=== PATIENT | female | born 1960 | race African-American/Black ===

== ENCOUNTER 2019-12-04 10:15 | Outpatient (CLI) | payer MEDICARE, MEDICAID, SELFPAY ==
--- NOTE | 2019-12-04 10:59 | ECG_ITS ---
Measurements Intervals [place] Rate: 82 P: 61 DC: 154 QRS: 46 QRSD: 98 T: 47 QT: 374 QTc: 437 Interpretive Statements SINUS RHYTHM BASELINE ARTIFACT- I, II, III, AVR, AVL, AVF NORMAL ECG Electronically Signed On 12-04-2019 11:21:36 CDT by Devin Ernandez D.O.
[2019-12-04 11:50] LABS: Albumin Level 4.4 g/dL (3.5-5.1); Blood Urea Nitrogen 19 mg/dL (7-17); Calcium 9.7 mg/dL (8.4-10.2); Carbon Dioxide 27 mmol/L (22-30); Chloride 102 mmol/L (98-107); Estimated Glomerular Filt Rate > 60; Glucose 90 mg/dL (65-105); Hemoglobin A1C 5.4 % (<5.7); Sodium 136 mmol/L (137-145)
[2019-12-04 11:51] LABS: Urine Cotinine NEGATIVE
[2019-12-04 11:54] LABS: Basophils Percent Auto 0.3 % (0.2-1.2); Eosinophils Absolute Auto 0.5 K/mm3 (0-0.3); Eosinophils Percent Auto 8.9 % (0-4.4); Hematocrit 41.4 % (37.0-47.0); Hemoglobin 13.2 g/dL (12.0-15.0); Immature Granulocyte Absolute 0.01 K/mm3 (0.00-0.031); Immature Granulocyte Percent A 0.2 % (0-0.5); Lymphocytes Absolute Auto 2.48 K/mm3 (0.9-3.2); Lymphocytes Percent Auto 41.1 % (18.3-44.2); Mean Corpuscular HGB Conc 31.9 g/dl (32-36); Mean Corpuscular Hemoglobin 28.4 pg (26-34); Mean Corpuscular Volume 89.2 fl (80-100); Mean Platelet Volume 9.9 fl (7.4-10.4); Monocytes Absolute Auto 0.7 K/mm3 (0.1-0.6); Monocytes Percent Auto 12.1 % (2.6-8.5); Neutrophils Absolute Auto 2.3 K/mm3 (1.3-6.7); Neutrophils Percent Auto 37.4 % (45.5-73.1); Platelet Count Result 243 k/mm3 (150-375); Red Blood Count 4.64 M/mm3 (4.2-5.4); Red Cell Distribution Width 13.1 % (11.5-14.5)
[2019-12-04 11:56] LABS: Partial Thromboplastin Time 28.1 SECONDS (22.3-36.8)
[2019-12-04 11:58] LABS: Add Urine Microscopic? YES; Appearance Urine Cloudy (Clear); Bacteria Urine 1+ /hpf; Bilirubin Urine Negative (Negative); Blood Urine Negative (Negative); Budding Yeast Urine Present /hpf; Color Urine Yellow (Yellow); Glucose Urine UA Negative (Negative); Ketones Urine Negative (Negative); Leukocyte Esterase Ur Negative LEU/UL (Negative); Mucus Urine Heavy /lpf; Nitrate Urine Negative (Negative); Protein Urine Negative (Negative); Specific Grav Ur 1.021 (1.001-1.035); Squamous Epithelial Cell Urine Few /hpf (Few); WBC Urine 0-3 /hpf
== END 2019-12-04 10:16 | disposition home or self-care (01) ==
LOC: ANHSURGERY 10:21
PROVIDERS: PCP Family Medicine; Visit Provider Orthopaedic Surgery
DX: Z01.818 Encounter for other preprocedural examination (principal); M17.10 Unilateral primary osteoarthritis, unspecified knee
CPT/HCPCS: 36415; 80048; 80307; 81001; 82040; 83036; 85025; 85610; 85730; 86850; 86900; 86901; 87081; 93005

== ENCOUNTER 2019-12-09 01:11 | Outpatient (CLI) | payer MEDICARE, MEDICAID, SELFPAY ==
[2019-12-09 16:42] LABS: SARS-CoV-2 RNA PCR Negative
== END 2019-12-09 01:12 | disposition home or self-care (01) ==
LOC: ANHCOVIDDT 01:11
PROVIDERS: PCP Family Medicine; Visit Provider Orthopaedic Surgery
DX: Z20.828 Contact with and (suspected) exposure to other viral communicable diseases (principal); Z01.812 Encounter for preprocedural laboratory examination
CPT/HCPCS: 87635; C9803; U0003

== ENCOUNTER 2019-12-12 01:06 | Day surgery (SDC) | payer MEDICARE, MEDICAID, SELFPAY ==
[2019-12-04 10:45] VITALS: BMI 39.4
[2019-12-04 10:59] VITALS: BP 145/75; PULSE 86; RESP 18; TEMP 36.8; O2SAT 100
[2019-12-12] VITALS (16 sets, daily range): BP systolic 114–153; BP diastolic 68–98; PULSE 72–97; RESP 12–20; TEMP 36.2–36.9; O2SAT 92–98; BMI 44.7
--- NOTE | ~2019-12-12 | XR_ITS ---
EXAMINATION: XR knee RT 2V DATE: 12/12/2019 13:07 INDICATION: Total right knee arthroplasty. Postop. TECHNIQUE: 2 views of right knee were obtained. COMPARISON: Right knee radiographs 08/14/2019 FINDINGS: There is a total right knee arthroplasty in near-anatomic alignment. There are osteophytes of the patella. No fracture. There is gas in the knee joint and soft tissues, consistent with recent surgery. Anterior skin gorge are noted. IMPRESSION: 1. Total right knee arthroplasty in near-anatomic alignment. Reviewed, dictated and finalized at location A.
--- NOTE | 2019-12-12 07:33 | WPDHPUPDATE1 ---
History and Physical Update Update Date/Time: 12/12/19 07:33 History and Physical has been reviewed, including an updated exam of the patient. There are NO changes in the patient's condition. Risks, benefits, and alternatives have been discussed and questions answered. Patient agrees to proceed with procedure.
[2019-12-12] MEDS: LACTATED RINGERS 1,000 ML 30 ML IV CONT ×2 (09:40→12:53)
--- NOTE | 2019-12-12 10:13 | WPDANESEPPF ---
Anes - Initial Pre Proc Eval Procedure: Operation Date: 12/12/19 11:00 Proposed Procedures p Right Total Knee Arthroplasty - Harvey Kimbrough MD Date/Time: 12/12/19 10:13 Surgeon: Harvey Kimbrough MD Pre Op Diagnosis: DJD & OA Right Knee Patient Data Age: 59 Gender: F Height: 1.7 m Weight: 114 kg Last Vital Signs Temp 36.8 C 12/12/19 10:00 Pulse 87 12/12/19 10:00 Resp 20 12/12/19 10:00 BP 128/68 12/12/19 10:00 Pulse Ox 94 12/12/19 10:00 Allergies Allergy/AdvReac Type Severity Reaction Status Date / Time tramadol Allergy Unknown Hives Verified 12/12/19 09:30 Home Medications Medication Instructions Recorded Confirmed Type famotidine 20 mg tablet 20 mg PO DAILY 08/14/19 12/12/19 History amlodipine 2.5 mg PO DAILY 12/04/19 12/12/19 History diclofenac sodium 75 mg PO PRN PRN 12/04/19 12/12/19 History doxepin 25 mg PO HS 12/04/19 12/12/19 History oxycodone-acetaminophen 10 mg-325 1 tablet PO Q4H PRN 12/04/19 12/12/19 History mg tablet Patient hx anesthesia problems: none Family hx anesthesia problems: none PMFSH Past Medical History Medical History (Updated 12/11/19 @ 09:47 by Avinash Mary DO) Arthritis Chronic back pain GERD (gastroesophageal reflux disease) Hypertension Vision abnormalities Vision loss Weight loss Social History Social History Alcohol intake: current Anes - Eval Final PreProcedure Day of Procedure 12/12/19 10:13 Patient weight: obese Heart: regular rate and rhythm Lungs: clear to auscultation and normal air movement Airway: Mallampati scale class II Neurological: alert and oriented Last oral intake: >/= 8 hours ASA classification: III Emergent: no Anesthetic plan: proceed Anesthesia type and monitoring: general ETT and standard monitoring Informed Consent: The patient's anesthetic plan and its attendant risks and benefits were discussed with the patient/family/POA. Questions were solicited and answers provided to the satisfaction of the patient/family/POA.
--- NOTE | 2019-12-12 10:14 | WPDANESPNB ---
Anes - Peripheral Nerve Block Date/Time: 12/12/19 10:14 I have discussed with the patient/family/POA the placement of a peripheral nerve block for post-operative pain management, including associated risks, benefits, complications, and side effects. Alternative methods of post-operative analgesia were detailed. Questions were solicited and answers provided to the satisfaction of the patient/family/POA. Time-Out: A pre-procedural Time-Out was completed immediately before starting the procedure and confirmed: Patient Identification, Site, Procedure, Patient Position and the Availability of Requisite Equipment. Clinical Indications: Acute post-operative pain management requested by the operative surgeon. Nerve Block Insertion Note Anes-nerve block: femoral right Patient position: supine Skin prep: chlorhexidine Needle: 22 gauge, stimulating, insulated echogenic needle. Needle length: 80 mm Technique: nerve stimulation lost at (mA) (0.3) and ultrasound Injectate: bupivacaine 0.5% with epi 5 mcg/ml (30cc) Observations: tolerated well Complications: none Procedure start time:: 1038 Procedure end time:: 1043
[2019-12-12] MEDS: IBUPROFEN IV 800 MG/200 ML 800 MG/200 ML BAG 400 MG IVPB (10:15)
[2019-12-12] MEDS: ceFAZolin SODIUM 1 GM VIAL IV PUSH (10:45)
[2019-12-12] MEDS: ceFAZolin 2 GM/D5W 50 ML 2 GM/50 ML BAG IVPB ×2 (10:45→18:14)
--- NOTE | 2019-12-12 12:52 | PM.OP ---
Procedure Note - Brief Procedure Note - Brief Date of procedure: 12/12/19 Pre-op diagnosis: DJD & OA Right Knee Post-op diagnosis: same Procedure performed: R TKA Anesthesia: GETA Surgeon: Harvey Kimbrough MD Estimated blood loss (mL): 100 Complications: No immediate complications Condition: stable Disposition: PACU
--- NOTE | 2019-12-12 14:40 | ADMGEN ---
This patient, Mikki Davies, was admitted to Medical Room 253-01. Patient/family oriented to hospital policies and general routines including ID bracelet, bed and alarms, visiting hours, pain management, procedures, bathroom and other care routines, personal items, smoking policy, room service/diet, and visiting hours. Valuables list has been completed. Information on how to activate the Rapid Response Team has been discussed. Patient/Family are encouraged to report perceived risks to care and to ask questions if they do not understand what they are told or what they should do.
[2019-12-12] MEDS: SODIUM CHLORIDE 0.9% IV 1,000 ML 125 ML IV CONT (15:03)
[2019-12-12] MEDS: MORPHINE SULFATE 4 MG/ML INJ IV PUSH ×2 (15:05→18:07)
[2019-12-12] MEDS: CELECOXIB 200 MG CAPSULE PO (16:58)
[2019-12-12] MEDS: DOCUSATE SODIUM 100 MG CAPSULE PO (16:59)
--- NOTE | 2019-12-12 18:11 | OP_ITS ---
DATE OF PROCEDURE: 12/12/2019 PREOPERATIVE DIAGNOSIS: Right knee degenerative joint disease. POSTOPERATIVE DIAGNOSIS: Right knee degenerative joint disease. PROCEDURE: Right total knee arthroplasty. ANESTHESIA: General. COMPLICATIONS: None. INDICATIONS: This is a 59-year-old female with advanced osteoarthritis of the right knee. She was in pain and she was indicated for right total knee arthroplasty. DESCRIPTION OF PROCEDURE: The patient was taken to the operating room in stable condition and placed in supine position. General anesthesia was induced and then the right lower extremity was prepped and draped sterilely from the toes to the thigh. A midline skin incision was made. Medial parapatellar arthrotomy was made. Patella was everted. There was arthrosis in all 3 compartments of the knee joint. Then, IM kendal was placed in the femur and transfemoral cut was made in 5 degrees of valgus removing approximately 9 mm of bone from the distal femur. Next, the femur was sized to 67.5, so a cutting block was placed in 3 degrees of external rotation and in alignment with [place] line. Anterior, posterior, and chamfer cuts were made to the femur. Next, the transtibial cut was made of the tibia removing approximately 10 mm of bone from the high side. The tibial surface was planed with a planer and the 71 tibial trial was placed in line with one-third medial aspect of the tibial tubercle and then a 67.5 femoral trial implant then was seated on to the femur. A #10 CR poly trial was placed. The knee came out to full extension. There was good varus and valgus stability in both flexion and extension. There was good anterior-posterior stability. There was no tilt of the patella with tracking and the knee came out to full extension. The trial instruments then were removed from the knee. Then, the knee was irrigated thoroughly with sterile saline and then a #71 tibial Biomet component was cemented into place and a femoral component measuring 67.[address] as well and a poly trial measuring #10 was also placed. The knee came out to full extension. Once the cement was hardened, excess cement had been removed from the periphery of the implant. The knee was taken through range of motion, found to be very stable. There was good stability also in the anterior-posterior plane and the varus valgus stress. The trial polyethylene was removed and then a #10 CR E-poly from [employer] was tapped into place and secured. The knee came out to full extension. The knee was taken through range of motion and found to be very stable in varus-valgus stress. The patella tracked without any tilt. The tourniquet was deflated. The bleeders were cauterized. The wound was irrigated thoroughly with sterile Betadine and sterile water to half-strength. The arthrotomy then was approximated with #1 Vicryl, subcutaneous tissues with 2-0 Vicryl, and the skin was approximated with gorge. Wound was washed and placed sterile dressing. The patient was extubated. Lyndon I MT: Cem
[2019-12-12] MEDS: RIVAROXABAN 10 MG TABLET PO (20:47)
[2019-12-12] MEDS: DOXEPIN HCL 25 MG CAPSULE PO (20:47)
[2019-12-13 00:07] VITALS: BP 125/60; PULSE 93; RESP 20; TEMP 36.4; O2SAT 94
[2019-12-13] MEDS: MORPHINE SULFATE 4 MG/ML INJ IV PUSH ×3 (01:24→08:56)
[2019-12-13] MEDS: ceFAZolin 2 GM/D5W 50 ML 2 GM/50 ML BAG IVPB ×2 (01:30→09:04)
[2019-12-13 04:07] VITALS: BP 126/71; PULSE 90; RESP 18; TEMP 36.6; O2SAT 96
[2019-12-13 05:40] LABS: Basophils Percent Auto 0.2 % (0.2-1.2); Eosinophils Percent Auto 0.1 % (0-4.4); Hematocrit 34.5 % (37.0-47.0); Hemoglobin 10.9 g/dL (12.0-15.0); Immature Granulocyte Absolute 0.08 K/mm3 (0.00-0.031); Immature Granulocyte Percent A 0.6 % (0-0.5); Lymphocytes Percent Auto 11.5 % (18.3-44.2); Mean Corpuscular HGB Conc 31.6 g/dl (32-36); Mean Corpuscular Hemoglobin 28.8 pg (26-34); Mean Corpuscular Volume 91.3 fl (80-100); Mean Platelet Volume 9.8 fl (7.4-10.4); Monocytes Absolute Auto 1.9 K/mm3 (0.1-0.6); Monocytes Percent Auto 14.2 % (2.6-8.5); Neutrophils Absolute Auto 9.6 K/mm3 (1.3-6.7); Neutrophils Percent Auto 73.4 % (45.5-73.1); Platelet Count Result 232 k/mm3 (150-375); Red Blood Count 3.78 M/mm3 (4.2-5.4); Red Cell Distribution Width 12.8 % (11.5-14.5)
[2019-12-13 05:55] LABS: Blood Urea Nitrogen 14 mg/dL (7-17); Calcium 9.2 mg/dL (8.4-10.2); Carbon Dioxide 29 mmol/L (22-30); Chloride 101 mmol/L (98-107); Estimated CRCL calculation 102 ml/min; Estimated Glomerular Filt Rate > 60; Glucose 123 mg/dL (65-105); Potassium 4.7 mmol/L (3.4-5.0); Sodium 134 mmol/L (137-145)
[2019-12-13 06:00] VITALS: BP 126/71; PULSE 90; RESP 18; TEMP 36.6; O2SAT 96
[2019-12-13] MEDS: CELECOXIB 200 MG CAPSULE PO ×2 (08:52→17:21)
[2019-12-13] MEDS: FAMOTIDINE 20 MG TABLET PO (08:52)
[2019-12-13] MEDS: AMLODIPINE BESYLATE 2.5 MG TABLET PO (08:52)
[2019-12-13] MEDS: DOCUSATE SODIUM 100 MG CAPSULE PO ×2 (08:52→17:21)
--- NOTE | 2019-12-13 09:02 | WPDANESPN ---
Anes - Prog Note Post-Op Date/Time: 12/13/19 09:02 Cardiovascular status: normal Respiratory status: normal Airway patency: baseline Mental status: baseline Post-Op hydration status: normal Vital Signs: Last Vital Signs Temp 36.6 C 12/13/19 06:00 Pulse 90 12/13/19 06:00 Resp 18 12/13/19 06:00 BP 126/71 12/13/19 06:00 Pulse Ox 96 12/13/19 06:00 I/O: Intake & Output 12/12/19 12/13/19 12/13/19 23:59 07:59 15:59 Intake Total 960 2050 Output Total 300 200 Balance 660 1850 Laboratory Tests 12/13/19 05:19 12/13/19 05:19 12/13/19 12/13/19 05:19 05:19 WBC 13.0 H RBC 3.78 L Hgb 10.9 L Hct 34.5 L MCV 91.3 MCH 28.8 MCHC 31.6 L RDW 12.8 Plt Count 232 MPV 9.8 Immature Gran % (Auto) 0.6 H Neut % (Auto) 73.4 H Lymph % (Auto) 11.5 L [place] % (Auto) 14.2 H Eos % (Auto) 0.1 Baso % (Auto) 0.2 Lymph # (Auto) 1.50 [place] # (Auto) 1.9 H Eos # (Auto) 0.0 Baso # (Auto) 0.0 Abs Immat Gran (auto) 0.08 H Absolute Neuts (auto) 9.6 H Absolute Nucleated RBC 0.0 Nucleated RBC % 0.0 Sodium 134 L Potassium 4.7 Chloride 101 Carbon Dioxide 29 BUN 14 D Creatinine 0.70 Estim Creat Clear Calc 102 Estimated GFR > 60 Glucose 123 H Calcium 9.2 Post-procedural complaints: none Patient Feedback: Patient satisfied with anesthetic care.
[2019-12-13 09:48] VITALS: O2SAT 92
[2019-12-13 10:00] VITALS: BP 116/69; PULSE 92; RESP 16; TEMP 36.6; O2SAT 97
--- NOTE | 2019-12-13 12:29 | PM.IMCN ---
Assessment and Plan Assessment and plan (1) Status post total right knee replacement: Code(s): Z96.651 - Presence of right artificial knee joint Status: Acute Assessment and Plan: Patient is POD#1 s/p right total knee arthroplasty by Dr. Kimbrough 12/12/19. Wound care, pain control, DVT prophylaxis per Orthopedic service. (2) Hypertension: Code(s): I10 - Essential (primary) hypertension Status: Chronic Assessment and Plan: Blood pressures are well controlled on her home Norvasc, last BP 116/69. Monitor blood pressures and adjust treatment if needed. (3) GERD (gastroesophageal reflux disease): Code(s): K21.9 - Gastro-esophageal reflux disease without esophagitis Status: Chronic Assessment and Plan: No acute issues today. Continue PPI. HPI Data of Consult Consult date: 12/13/19 Requesting Physician: Harvey Kimbrough MD Primary Care Provider: Mala SalasMD Consult Narrative Narrative: Date of Service 12/13/19 0900 The supervising physician for this medical consultation is Dr. Hunter Mora I am asked to see this patient in consultation at the request of Dr. Kimbrough for postoperative medical management of hypertension. Ms. Davies is 59-year-old female with history of hypertension, GERD, and degenerative joint disease who is seen today postop day #1 s/p elective right total knee arthroplasty by Dr. Kimbrough after failing conservative therapy. She is feeling okay today other than right knee discomfort which she rates an 8/10 at time my exam. She denies any other symptoms such as chest pain, shortness of breath, cough, nausea, or vomiting. She is tolerating oral intake without any issues. Review of Systems Review of Systems: Narrative: Twelve systems were reviewed with pertinent positives and negatives as per HPI. Except as documented, all other systems were reviewed and are negative. [facility] Past Medical History Medical History (Updated 12/13/19 @ 12:56 by Lauren Ocasio PA-C) Arthritis Chronic back pain GERD (gastroesophageal reflux disease) Hypertension Vision abnormalities Vision loss Weight loss Surgical History Surgical History History of joint replacement Left knee replaced 2016 Right total knee arthroplasty 12/12/[address] Kimbrough History of tubal ligation 1999 Family History Family History Mother Breast cancer Sibling Cancer Other Arthritis Social History Social History (Updated 12/13/19 @ 12:53 by Lauren Ocasio PA-C) Social History: Ms. Davies lives at home alone in [place], [place]. She reports drinking wine about once per week or less. She has smoked about 1 pack of cigarettes per week for 30 years, says she quit just before this surgery. Denies other substance use. She designates her daughter, Queta Davies, as her surrogate decision maker and is Full Code status. Her PCP is Dr Mala Salas. Years smoked: 40 Smoking status: Current every day smoker Tobacco type: cigarettes Alcohol intake: current Drinks per week: 4 Substance use: never Meds Home Medications and Allergies Home Medications Medication Instructions Recorded Confirmed Type famotidine 20 mg tablet 20 mg PO DAILY 08/14/19 12/12/19 History amlodipine 2.5 mg PO DAILY 12/04/19 12/12/19 History diclofenac sodium 75 mg PO PRN PRN 12/04/19 12/12/19 History doxepin 25 mg PO HS 12/04/19 12/12/19 History oxycodone-acetaminophen 10 mg-325 1 tablet PO Q4H PRN 12/04/19 12/12/19 History mg tablet Allergies Allergy/AdvReac Type Severity Reaction Status Date / Time tramadol Allergy Unknown Hives Verified 12/12/19 09:30 Vital Signs Last Vital Signs Temp 97.8 F 12/13/19 10:00 Pulse 92 12/13/19 10:00 Resp 16 12/13/19 1
[2019-12-13 14:00] VITALS: BP 136/72; PULSE 100; RESP 18; TEMP 36.4; O2SAT 98
--- NOTE | 2019-12-13 15:58 | PC.NURSE ---
Went into discuss discharge options with patient who expressed desire to go home today after telling the doctor she would discharge tomorrow. I informed the patient that the doctor had just started a surgery and would be unavailable for at least 3 hours. I explained to the patient that we could call for verbal discharge orders if she needed to leave sooner than that, and asked the patient when she thought her ride would arrive. The patient was unsure but still wanted to go home today. I offered the option of a taxi and the patient became very upset. She then said I will just go home tomorrow, have the orders ready for me early in the morning. I explained that she could be discharged tomorrow but there were several different options to get her discharged today if she wished. The patient still very upset said, I don't need you rushing me out of here, go do what you need to do. I clarified with the patient that she meant she still wanted to discharge today and the patient then said I said do what you need to do to get me out of here today, and get your completion supervisor. cloth desizing range operator chief informed of patient's wishes and will continue to work at a discharge solution for the patient.
[2019-12-13] MEDS: RIVAROXABAN 10 MG TABLET PO (17:21)
--- NOTE | 2019-12-13 17:33 | WPDPN ---
Progress Note: A&P Additional Plan POD 1 DOING WELL. SHE HAS PASSED PT AND WOULD LIKE TO GO HOME. SHE WILL F/U IN 3 WEEKS. Exam Extrem: Other: VSS AFEBRILE DRESSING DRY NV INTACT NEG HOMANS SIGN CALF SOFT NON TENDER Objective Data Vital Signs Vital Signs: Vital Signs - 24 hr 12/12/19 18:00 12/12/19 20:07 12/12/19 22:00 Temperature 36.8 C 36.6 C 36.6 C Pulse Rate 95 95 95 Respiratory Rate 17 18 18 Blood Pressure 142/81 H 130/98 H 130/98 H Pulse Oximetry 95 97 97 12/13/19 00:07 12/13/19 04:07 12/13/19 06:00 Temperature 36.4 C 36.6 C 36.6 C Pulse Rate 93 90 90 Respiratory Rate 20 18 18 Blood Pressure 125/60 126/71 126/71 Pulse Oximetry 94 96 96 12/13/19 09:48 12/13/19 10:00 12/13/19 14:00 Temperature 36.6 C 36.4 C Pulse Rate 92 100 Respiratory Rate 16 18 Blood Pressure 116/69 136/72 Pulse Oximetry 92 97 98 Intake/Output Intake/Output: Intake & Output 12/10/19 12/11/19 12/12/19 12/13/19 23:59 23:59 23:59 23:59 Intake Total 1360 2390 Output Total 300 200 Balance 1060 2190 Meds/Results Medications: Active Medications Generic Name Dose Route Start Last Admin Trade Name Freq PRN Reason Stop Dose Admin Acetaminophen 1,000 mg 12/12/19 14:22 Tylenol Tablet PO Q6H PRN Mild Pain (1-3) Amlodipine Besylate 2.5 mg 12/13/19 09:00 12/13/19 08:52 Norvasc PO 2.5 mg DAILY DANIEL Administration Celecoxib 200 mg 12/12/19 17:00 12/13/19 17:21 Celebrex PO 200 mg BIDWM DANIEL Administration Diazepam 5 mg 12/12/19 14:22 Valium Po PO Q8H PRN Spasms Diphenhydramine HCl 25 mg 12/12/19 14:22 Benadryl Inj IV PUSH Q6H PRN Itching Docusate Sodium 100 mg 12/12/19 17:00 06/17/20 17:21 Colace Capsule PO 100 mg BID DANIEL Administration Doxepin HCl 25 mg 12/12/19 21:00 12/12/19 20:47 Sinequan PO 25 mg HS DANIEL Administration Famotidine 20 mg 12/13/19 09:00 12/13/19 08:52 Pepcid PO 20 mg DAILY DANIEL Administration Morphine Sulfate 4 mg 12/12/19 14:22 12/13/19 08:56 Morphine Sulfate Inj IV PUSH 4 mg Q2H PRN Administration Breakthrough pain rated 7-10 Naloxone HCl 0.1 mg 12/12/19 14:22 Narcan IV PUSH Q2M PRN Opiate Reversal Ondansetron HCl 4 mg 12/12/19 14:22 Zofran Inj IV PUSH Q4H PRN Nausea And Vomiting Oxycodone HCl 5 mg 12/12/19 14:22 12/13/19 16:06 Roxicodone Ir Tablet PO 5 mg Q4H PRN Administration SEVERE PAIN Oxycodone/Acetaminophen 1 tablet 12/12/19 14:22 12/13/19 03:20 Percocet 5-325 Mg PO 1 tablet Q4H PRN Administration Pain Rated 4-6 Oxycodone/Acetaminophen 1 tablet 12/12/19 14:45 12/13/19 16:06 Percocet 5-325 Mg PO 01/11/20 14:46 1 tablet Q4H PRN Administration SEVERE PAIN Rivaroxaban 10 mg 12/12/19 21:00 12/13/19 17:21 Xarelto PO 12/23/19 17:01 10 mg DAILY@17 DANIEL Administration Radiology Results: ITS Impressions Knee X-Ray 12/12/19 13:27 IMPRESSION: 1. Total right knee arthroplasty in near-anatomic alignment. Labs Labs: Laboratory Results - last 24 hr 12/13/19 12/13/19 05:19 05:19 WBC 13.0 H RBC 3.78 L Hgb 10.9 L Hct 34.5 L MCV 91.3 MCH 28.8 MCHC 31.6 L RDW 12.8 Plt Count 232 MPV 9.8 Immature Gran % (Auto) 0.6 H Neut % (Auto) 73.4 H Lymph % (Auto) 11.5 L [place] % (Auto) 14.2 H Eos % (Auto) 0.1 Baso % (Auto) 0.2 Lymph # (Auto) 1.50 [place] # (Auto) 1.9 H Eos # (Auto) 0.0 Baso # (Auto) 0.0 Abs Immat Gran (auto) 0.08 H Absolute Neuts (auto) 9.6 H Absolute Nucleated RBC 0.0 Nucleated RBC % 0.0 Sodium 134 L Potassium 4.7 Chloride 101 Carbon Dioxide 29 BUN 14 D Creatinine 0.70 Estim Creat Clear Calc 102 Estimated GFR > 60 Glucose 123 H Calcium 9.2 Quality VTE Prophylaxis VTE prophylaxis: pharmacologic ordered (Xarelto per the primary service)
--- NOTE | 2019-12-13 17:43 | P.DS_ITS ---
DS: Admitting Diagnosis Admitting Diagnosis Admitting Diagnosis: RIGHT KNEE DJD DS: Discharge Diagnosis Discharge Diagnosis (1) Status post total right knee replacement: Code(s): Z96.651 - Presence of right artificial knee joint Status: Acute DS: Summary Time Spent with Patient Time attestation: Total time spent providing and/or coordinating discharge services:20 MIN DS: Data Data Completed and Pending Labs on day of discharge: Labs from last 24 hours 12/13/19 12/13/19 05:19 05:19 WBC 13.0 H RBC 3.78 L Hgb 10.9 L Hct 34.5 L MCV 91.3 MCH 28.8 MCHC 31.6 L RDW 12.8 Plt Count 232 MPV 9.8 Immature Gran % (Auto) 0.6 H Neut % (Auto) 73.4 H Lymph % (Auto) 11.5 L [place] % (Auto) 14.2 H Eos % (Auto) 0.1 Baso % (Auto) 0.2 Lymph # (Auto) 1.50 [place] # (Auto) 1.9 H Eos # (Auto) 0.0 Baso # (Auto) 0.0 Abs Immat Gran (auto) 0.08 H Absolute Neuts (auto) 9.6 H Absolute Nucleated RBC 0.0 Nucleated RBC % 0.0 Sodium 134 L Potassium 4.7 Chloride 101 Carbon Dioxide 29 BUN 14 D Creatinine 0.70 Estim Creat Clear Calc 102 Estimated GFR > 60 Glucose 123 H Calcium 9.2 Discharge Plan Discharge Patient Disposition: Other Discharge Instructions: Per Care Coordination: [facility]. [phone] is [facility] phone #. They will call you to arrange an appointment to come to your home. DRESSING TO BE CHANGED BY HOME NURSE IN 1 WEEK Patient Instructions: Antibiotic Form, Rivaroxaban (By mouth), Pain Management (GEN), Joint Replacement Surgery (DC), Knee Replacement (DC) Follow-up/Referrals: Harvey Kimbrough MD [Physician] - 3 Weeks Discharge Medications: Continued famotidine 20 mg tablet 20 mg PO DAILY RF: 0 oxycodone-acetaminophen [Percocet] 10-325 mg tablet 1 tablet PO Q4H PRN (Reason: Pain) RF: 0 diclofenac sodium 75 mg Tablet,Delayed Release (Dr/Ec) 75 mg PO PRN PRN (Reason: Pain) RF: 0 amlodipine 2.5 mg Tablet 2.5 mg PO DAILY RF: 0 doxepin 25 mg Capsule 25 mg PO HS RF: 0 Quality VTE Prophylaxis VTE prophylaxis: pharmacologic ordered (Xarelto per the primary service)
== END 2019-12-13 19:08 | disposition other institution (70) ==
LOC: ANHSURGERY 09:11 → ANH2MED 14:36
PROVIDERS: PCP Family Medicine; Visit Provider Orthopaedic Surgery
PROC: (CPT 27447; principal; 2019-12-12 11:00)
DX: M17.11 Unilateral primary osteoarthritis, right knee (principal); G89.18 Other acute postprocedural pain; I10 Essential (primary) hypertension; K21.9 Gastro-esophageal reflux disease without esophagitis; E66.9 Obesity, unspecified; Z68.41 Body mass index [BMI] 40.0-44.9, adult; F17.210 Nicotine dependence, cigarettes, uncomplicated
CPT/HCPCS: 27447; 64447; 36415; 73560; 80048; 80307; 81001; 82040; 83036; 85025; 85610; 85730; 86850; 86900; 86901; 87081; 87635; 93005; 97110; 97116; 97161; 97165; 97530; A9270; C1713; C1776; C9803; J0171; J0330; J0690; J1100; J1741; J2250; J2270; J2370; J2405; J2704; J2795; J3010; J7030; J7120; U0003